=== PATIENT | female | born 1960 | race Caucasian/White ===

== ENCOUNTER 2016-09-13 20:40 | Emergency (ER) | payer OTHER ==
[~2016-09-13] VITALS: Ht 154.9 cm; Wt 119.7 kg
[2016-09-13 21:18] LABS: ADD MIUA? YES; BILIRUBIN NEGATIVE; BLOOD MODERATE; COLOR YELLOW ((YELLOW)); GLUCOSE (STRIP) NEGATIVE; KETONES NEGATIVE; LEUKOCYTES TRACE; NITRITE NEGATIVE; PROTEIN (STRIP) TRACE; SPECIFIC GRAVITY 1.028 (1.000-1.030); UROBILINOGEN 0.2 MG/DL (0.2-1.0)
[2016-09-13] MEDS ORDERED: OMEPRAZOLE20 M2 PO (21:19)
[2016-09-13] MEDS ORDERED: LEVO-T25 MCG PO (21:20)
[2016-09-13] MEDS ORDERED: PROZAC40 MG PO (21:20)
[2016-09-13 21:21] LABS: HEMATOCRIT 44.5 % (36.0-46.0); MCH 28.5 PG (29.0-34.0); MCHC 33.3 G/DL (30.0-36.0); MCV 85.6 FL (83-99); MEAN PLAT.VOLUME 9.3 uM^3 (9.5-12.4); PLATELET COUNT 303 K/uL (156-360); RBC DIS.WIDTH-CV 15.5 % (11.8-14.6); RBC DIS.WIDTH-SD 47.6 % (39-53); WHITE BLOOD COUNT 11.6 K/uL (4.1-10.2)
[2016-09-13] MEDS ORDERED: MELOXICAM7.5 MG PO (21:21)
[2016-09-13 21:33] LABS: CHLORIDE 103 mEq/L (99-109); SODIUM 137 mEq/L (136-147)
[2016-09-13 21:35] LABS: GLUCOSE 103 mg/dL (70-99)
[2016-09-13 21:36] LABS: ANION GAP 9 MEQ/L (2-14)
[2016-09-13 21:37] LABS: TOTAL BILIRUBIN 0.4 mg/dL (0.0-1.0)
[2016-09-13 21:39] LABS: ALKALINE PHOSPHATASE 103 IU/L (3-129); GFR ESTIMATE (CALCULATED) > 59 mL/min/
[2016-09-13 21:40] LABS: UREA NITROGEN (BUN) 27 mg/dL (9-23)
[2016-09-13 21:45] LABS: BACTERIA 1+; CASTS NONE SEEN /LPF; CRYSTALS NONE SEEN; EPITHELIAL CELLS 2+; MUCUS 1+; UCUL ADDED? NO; WHITE BLOOD CELLS 0-5 /HPF (0-5)
[2016-09-13 21:48] LABS: QUANTITATIVE HCG < 4.0 MIU/ML
[2016-09-13] MEDS ORDERED: MOTRIN800 MG PO (23:09)
[2016-09-13] MEDS ORDERED: PERCOCET 5/31 TABLET PO (23:09)
[2016-09-13] MEDS ORDERED: KEFLEX500 MG PO (23:09)
[2016-09-13 23:49] VITALS: BP 131/66
== END 2016-09-13 23:50 | disposition home or self-care (01) ==
LOC: RME 20:40 → EME 20:40 → RME 23:50
DX: R10.9 Unspecified abdominal pain (principal); R30.0 Dysuria; R39.15 Urgency of urination; R19.7 Diarrhea, unspecified
CPT/HCPCS: 74000; 80053; 81003; 84702; 85027; 99281; 99284